=== PATIENT | male | born 1950 | race Caucasian/White ===

== ENCOUNTER → 2021-05-20 | Emergency (ER) | payer OTHER ==
[~2021-05-20] VITALS: Ht 170.2 cm; Wt 77.1 kg
[2021-05-20 19:22] VITALS: BP 133/86
--- NOTE | 2021-05-20 19:23 | NUR ---
Patient discharged to home in stable condition. Written and verbal after care instructions given. Patient verbalizes understanding of instruction.
== END | disposition home or self-care (01) ==
LOC: ER 17:41
DX: S60.222A Contusion of left hand, initial encounter (principal); F17.290 Nicotine dependence, other tobacco product, uncomplicated; Y04.2XXA Assault by strike against or bumped into by another person, initial encounter; Y93.89 Activity, other specified; Y92.89 Other specified places as the place of occurrence of the external cause; Y99.8 Other external cause status
CPT/HCPCS: 73130-TC